=== PATIENT | female | born 1990 | race African-American/Black ===

== ENCOUNTER 2020-04-04 00:14 | Emergency (ER) | payer MEDICAID ==
[~2020-04-04] VITALS: Ht 160 cm; Wt 51.0 kg
[2020-04-04] MEDS ORDERED: LIDOCAINE HCL 1% 20ML VIAL (Pyxis) INJ INFIL ONE (00:45)
[2020-04-04 02:16] VITALS: BP 115/70
== END 2020-04-04 02:16 | disposition home or self-care (01) ==
LOC: ER 00:14
DX: L03.012 Cellulitis of left finger (principal); F12.10 Cannabis abuse, uncomplicated
CPT/HCPCS: 10060; 99282; J3490

== ENCOUNTER 2020-08-17 20:46 | Emergency (ER) | payer MEDICAID ==
[~2020-08-17] VITALS: Ht 162.6 cm; Wt 49.7 kg
[2020-08-18] MEDS: DEXAMETHASONE 10 MG/ML VIAL IV ONE
[2020-08-18] MEDS: CEFTRIAXONE 1 G PREMIX 50 ML IV ONE
[2020-08-18] MEDS: LIDOCAINE HCL/EPINEPHRINE 1%-EPI 1:100,000 30 ML VIAL INFIL ONE (01:19)
[2020-08-18] MEDS: TETRACAINE/BENZOCAINE/BUTAMBEN 20 GM SPRAY MM SCH (01:19)
[2020-08-18] MEDS: KETOROLAC 15MG/ML VIAL IV ONE (01:35)
[2020-08-18 02:59] VITALS: BP 110/69
== END 2020-08-18 02:59 | disposition home or self-care (01) ==
LOC: ER 20:46
DX: J36 Peritonsillar abscess (principal); F12.10 Cannabis abuse, uncomplicated; R05 Cough; R50.9 Fever, unspecified
CPT/HCPCS: 71045; 87070; 96374; 96375; 99284; J0696; J1100; J1885; Z7610

== ENCOUNTER 2021-03-03 09:29 | Emergency (ER) | payer MEDICAID ==
[~2021-03-03] VITALS: Ht 160 cm; Wt 50.0 kg
[2021-03-03 10:10] VITALS: BP 122/74
== END 2021-03-03 10:13 | disposition home or self-care (01) ==
LOC: ER 09:29
DX: R09.89 Other specified symptoms and signs involving the circulatory and respiratory systems (principal)
CPT/HCPCS: 99283